=== PATIENT | male | born 2000 | race Caucasian/White ===

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

== ENCOUNTER 2024-06-30 14:40 | Emergency (ER) | payer SELFPAY ==
[2024-06-30 15:18] VITALS: BP 135/65; PULSE 80; RESP 18; TEMP 37.1; O2SAT 99; BMI 19.1
--- NOTE | 2024-06-30 15:27 | ED.ABDPAIN ---
HPI - Abdominal Pain <Jessica Galvan PA-C - Last Filed: 06/30/24 17:43> General Chief Complaint: Urogenital-Male Stated Complaint: poss kidney stone Time Seen by Provider: 06/30/24 15:27 Source: patient Mode of arrival: Ambulatory History of Present Illness HPI narrative: Mr. Lester is a 24-year-old male with a past medical history of eczema who presents to the emergency department for an episode of left lower quadrant abdominal pain that occurred this afternoon around 12:30pm. Patient states while urinating he developed a sharp burning pain in the left lower quadrant of his abdomen and also in the urethra. States that this pain has since gone away but he was worried about a kidney stone. Reports that he has been sexually active with the same female partner for the last 3 years. Denies any discharge or drainage from the penis. Denies penile, scrotal, or testicular pain. Reports that he does have an eczematous rash on his penis and scrotum x2 years. Denies fevers, chills, nausea, vomiting, hematuria, diarrhea, constipation, flank pain or back pain. Denies a history of kidney stones. He does not take any prescription medications and he has never had surgery. 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 Related Data Previous Rx's Medication Instructions Recorded triamcinolone acetonide 0.5 % 1 applic topical TID #15 grams 06/25/23 topical ointment cephalexin 500 mg capsule 500 mg PO QID 7 days #28 caps 06/30/24 Allergies Allergy/AdvReac Type Severity Reaction Status Date / Time No Known Drug Allergies Allergy Verified 06/25/23 11:50 Review of Systems <Jessica Galvan PA-C - Last Filed: 06/30/24 17:43> Review of Systems ROS Unobtainable: All systems reviewed & are unremarkable except as noted in HPI and below Patient History <Jessica Galvan PA-C - Last Filed: 06/30/24 17:43> Medical History Healthy adult Social History Smoking Status: Current every day smoker Smoking Status: Current every day smoker tobacco type: vaping alcohol intake frequency: a few times a month Alcohol type: hard liquor Substance Use Type: does not use Exam <Jessica Galvan PA-C - Last Filed: 06/30/24 17:43> Narrative Exam Narrative: GENERAL: 24 year old patient appears stated age. Well-developed patient, in no acute distress. HEAD: Atraumatic. Normocephalic. EYES: Extraocular motions intact. No scleral icterus. No injection or drainage. ENT: Nose without bleeding, purulent drainage. Throat without erythema, tonsillar hypertrophy or exudate. Airway patent. NECK: Trachea midline. Cervical ROM intact. CARDIOVASCULAR: Regular rate and rhythm. RESPIRATORY: ?Nonlabored respirations. ?Speaking in clear, full sentences. ?Clear to auscultation. Breath sounds equal bilaterally. No wheezes, rales, or rhonchi. ? GASTROINTESTINAL: Abdomen soft, non-tender, nondistended. No CVA tenderness. Normal bowel sounds. Pt refuses/declines exam. EXTREMITIES: No edema or joint tenderness. BACK: Nontender without deformity or crepitance. No flank tenderness. NEURO: AOx3. ?Clear speech. ?Moves all 4 extremities appropriately. SKIN: No rash or erythema of visible areas Initial Vital Signs Initial Vital Signs: Vital Signs Temperature 98.8 F 06/30/24 15:18 Pulse Rate 80 06/30/24 15:18 Respiratory Rate 18 06/30/24 15:18 Blood Pressure 135/65 06/30/24 15:18 Pulse Oximetry 99 06/30/24 15:18 Oxygen Delivery Method Room Air 06/30/24 15:18 <Becky Bassett MD - Last Filed: 06/30/24 19:26> Initial Vital Signs Initial Vital Signs: Vital Signs Temperature 98.8 F 06/30/24 15:18 Pulse Rate 80 06/30/24 15:18 Respiratory Rate 18 06/30/24 15:18 Blood Pressure 135/65 06/30/24 15:18 Pulse Oximetry 99 06/30/24 15:18 Oxygen Delivery Method Room Air 06/30/24 15:18 Course <Jessica Galvan PA-C - Last Filed: 06/30/24 17:43> Orders Ordered: ED Orders 06/30/24 16:00 Chlamydia Gonorrhea PCR -URINE Stat Urine Culture Stat Urine Microscopic Stat Discontinued Medications Acetaminophen (Acetaminophen 325 Mg Tablet) 975 mg PO NOW ONE Stop: 06/30/24 15:41 Last Admin: 06/30/24 16:05 Dose: 975 mg Documented By: ES Ceftriaxone Sodium (Ceftriaxone 1,000 Mg Vial) 500 mg IM NOW ONE Stop: 06/30/24 16:55 Last Admin: 06/30/24 17:02 Dose: 500 mg Documented By: ES Lidocaine HCl (Lidocaine 1% (Pf) 5 Ml) 2.1 ml INJ NOW ONE Stop: 06/30/24 16:55 Last Admin: 06/30/24 17:04 Dose: 2.1 ml Documented By: ES Vital Signs Vital signs: Vital Signs - 8 hr 06/30/24 15:18 Temperature 98.8 F Pulse Rate 80 Respiratory Rate 18 Blood Pressure 135/65 Pulse Oximetry 99 Oxygen Delivery Method Room Air <Becky Bassett MD - Last Filed: 06/30/24 19:26> Orders Ordered: ED Orders 06/30/24 16:00 Chlamydia Gonorrhea PCR -URINE Stat Urine Culture Stat Urine Microscopic Stat Discontinued Medications Acetaminophen (Acetaminophen 325 Mg Tablet) 975 mg PO NOW ONE Stop: 06/30/24 15:41 Last Admin: 06/30/24 16:05 Dose: 975 mg Documented By: ES Ceftriaxone Sodium (Ceftriaxone 1,000 Mg Vial) 500 mg IM NOW ONE Stop: 06/30/24 16:55 Last Admin: 06/30/24 17:02 Dose: 500 mg Documented By: ES Lidocaine HCl (Lidocaine 1% (Pf) 5 Ml) 2.1 ml INJ NOW ONE Stop: 06/30/24 16:55 Last Admin: 06/30/24 17:04 Dose: 2.1 ml Documented By: ARPAN Vital Signs Vital signs: Vital Signs - 8 hr 06/30/24 15:18 Temperature 98.8 F Pulse Rate 80 Respiratory Rate 18 Blood Pressure 135/65 Pulse Oximetry 99 Oxygen Delivery Method Room Air MDM - Abdominal Pain <Jessica Galvan PA-C - Last Filed: 06/30/24 17:43> Lab Data Labs: Lab Results 06/30/24 Range/Units 16:00 Urine RBC 0-1/hpf (0-5/HPF) Urine WBC 0-1/hpf (0-5/HPF) Ur Squamous Epith Cells None seen (0-5/HPF) Amorphous Sediment 4+ Urine Bacteria Few (2-10) H (None) Urine Mucus 1+ H (Negative) Ur Culture Indicated? Cult not indicated Vol Urine Centrifuged 10ml (spun) Ur Chlamydia DNA (PCR) Not detected N gonorrhoeae DNA (PCR) Not detected MDM Narrative Medical decision making narrative: 24-year-old male with a past medical history of eczema presents to the emergency department for an episode of left lower quadrant abdominal pain that occurred earlier today while urinating. Patient is currently pain-free. Differential diagnosis includes but is not limited to UTI, STD, pyelonephritis, ureterolithiasis, nephrolithiasis, diverticulitis, testicular torsion, hernia, etc. On exam patient is in no acute distress, nontoxic-appearing, all vital signs within normal limits, abdomen soft and nontender no CVA tenderness. Patient reports the pain that he experienced earlier is gone. Patient does admit to history of a ?rash? on his penis and scrotum but denies any pain in the testicles or scrotum and refuses a exam. We will start with urinalysis and gonorrhea/chlamydia and treat with Tylenol. Depending on UA results, may need to proceed with further workup. UA reveals few bacteria, 1+ urine mucus of 4+ amorphous sediment. Concerning for UTI. Patient has low suspicion for STD however we will treat empirically with 500 mg IM Rocephin for gonorrhea in addition to UTI. As this is patient's 1st UTI, we will treat with Keflex 4 times daily x7 days pending urine culture. Patient declines empiric treatment for chlamydia but understands he will be called if the results are positive. Discussed AZO otc for burning sx. Strict ER return precautions and PCP f/u discussed. Patient verbalized understanding of plan and is stable for discharge. <Becky Bassett MD - Last Filed: 06/30/24 19:26> Lab Data Labs: Lab Results 06/30/24 Range/Units 16:00 Urine RBC 0-1/hpf (0-5/HPF) Urine WBC 0-1/hpf (0-5/HPF) Ur Squamous Epith Cells None seen (0-5/HPF) Amorphous Sediment 4+ Urine Bacteria Few (2-10) H (None) Urine Mucus 1+ H (Negative) Ur Culture Indicated? Cult not indicated Vol Urine Centrifuged 10ml (spun) Ur Chlamydia DNA (PCR) Not detected N gonorrhoeae DNA (PCR) Not detected Discharge Plan Departure Patient Disposition: Home Clinical Impression: Urethritis Urinary tract infection Qualifiers: Urinary tract infection type: site unspecified Hematuria presence: without hematuria Qualified Code(s): N39.0 - Urinary tract infection, site not specified Instructions: DI for Urinary Tract Infection (UTI) Activity Restrictions/Additional Instructions: Dear Mr. Lester, Your diagnosis today is urinary tract infection. It is very important that you complete the full course of antibiotics. We also tested you for gonorrhea and chlamydia today which are sexually transmitted infections. The intramuscular injection of antibiotics she received today treat both urinary tract infection and gonorrhea. You will be called if you test positive for gonorrhea or chlamydia. If your positive for chlamydia, we will have to call you in additional oral antibiotics. Please refrain from sexual activity until you and your partners have completed treatment for any positive STDs. You may purchase [id number] AZO medication to help with burning pain. Take this according to package instructions. For eczema, apply hydrocortisone cream 2x a day for 14 days. For ring worm, apply clotrimazole fungal cream 2x day for 14 days. Please follow up with your primary care doctor within the next 2-3 days for ER follow-up. (If you do not have a PCP you can call [phone]. ?to schedule an appointment with an [facility] Primary Care Provider) IF YOU DEVELOP ANY NEW OR WORSENING SYMPTOMS, RETURN TO THE ER! Please read the attached instructions, they highlight more specific treatments and interventions for you at home. Thank you for letting me participate in your care, Jessica Galvan PA-C Prescriptions: New cephalexin 500 mg capsule 500 mg PO QID 7 Days Qty: 28 0RF No Action triamcinolone acetonide 0.5 % ointment 1 applic topical TID Qty: 15 0RF Referrals: Miscellaneous,Doctor[facility] [Primary Care Provider] - Stand Alone Forms: Patient Portal/API/Survey ED Sign-out <Becky Bassett MD - Last Filed: 06/30/24 19:26> Cosign ED Attending Evangelista Attestation: I was immediately available in the department for consultation throughout this patient's visit. Becky Bassett MD
[2024-06-30] MEDS: ACETAMINOPHEN 325 MG TABLET 975 MG PO (16:05)
[2024-06-30 16:20] LABS: Mucus Urine 1+ (Negative); RBC Urine 0-1/HPF (0-5/HPF); Squamous Epithelial Cell Urine None Seen (0-5/HPF); Urine Volume 10mL (spun)
[2024-06-30 16:25] LABS: Amorphous Sediment Urine 4+; Bacteria Urine Few (2-10); WBC Urine 0-1/HPF (0-5/HPF)
[2024-06-30 16:27] LABS: Culture Indicated Urine Cult Not Indicated
[2024-06-30] MEDS: cefTRIAXone 1,000 MG VIAL 500 MG IM (17:02)
[2024-06-30] MEDS: LIDOCAINE 1% (PF) 5 ML 2.1 ML INJ (17:04)
[2024-06-30 17:41] LABS: Urine N gonorrhoeae NOT DETECTED
[2024-06-30 17:42] LABS: Urine Chlamydia NOT DETECTED
== END 2024-06-30 17:50 | disposition home or self-care (01) ==
PROVIDERS: Emergency Provider Physician Assistant
DX: N34.2 Other urethritis (principal); R21 Rash and other nonspecific skin eruption
CPT/HCPCS: 81015; 87086; 87491; 87591; 96372; 99283; J0696